=== PATIENT | male | born 1985 | race Caucasian/White ===

== ENCOUNTER 2017-06-22 04:11 | Emergency (ER) | payer OTHER ==
[~2017-06-22] VITALS: Ht 180.3 cm; Wt 70.3 kg
--- NOTE | 2017-06-22 04:14 | PHYS DOC ---
Past Medical History Past Medical History: Seizure Past Surgical History: Other Additional Past Surgical Histo: RIGHT WRIST ORIF, RIGHT COLLARBONE SURG Alcohol Use: Heavy Drug Use: Marijuana Adult General Chief Complaint Chief Complaint: DENTAL PROBLEM HPI HPI Patient is a 32 year old male who presents with in over the last for 5 days. He states she's had issues with his teeth over the last several years and he's had episodes where his head pain the usual resolve themselves and go away. He does not have a dentist. 4 days ago he started having pain in his left upper jaw and is been getting worse. He states he took some Demerol pills earlier today and an amoxicillin tablet. He denies fevers chills nausea or vomiting. He denies any trismus or change in his voice, or trouble swallowing. He denies any troubles breathing. Review of Systems Review of Systems Constitutional: Denies fever or chills [] Eyes: Denies change in visual acuity, redness, or eye pain [] HENT: Denies nasal congestion or sore throat [] Respiratory: Denies cough or shortness of breath [] Cardiovascular: No additional information not addressed in HPI [] GI: Denies abdominal pain, nausea, vomiting, bloody stools or diarrhea [] : Denies dysuria or hematuria [] Musculoskeletal: Denies back pain or joint pain [] Integument: Denies rash or skin lesions [] Neurologic: Denies headache, focal weakness or sensory changes [] Endocrine: Denies polyuria or polydipsia [] Current Medications Current Medications Current Medications Medications (Trade) Dose Ordered Sig/Renee Start Time Stop Time Status Last Admin Dose Admin Acetaminophen/ Hydrocodone Bitart (Lortab 10/325) 1 tab 1X ONCE 06/22/17 05:00 06/22/17 05:01 Penicillin V Potassium (Veetid) 500 mg 1X ONCE 06/22/17 05:00 06/22/17 05:01 Allergies Allergies Allergies Coded Allergies Type Severity Reaction Last Updated Verified No Known Drug Allergies 03/13/15 No Physical Exam Physical Exam Constitutional: Well developed, well nourished, no acute distress, non-toxic appearance. [] HENT: Normocephalic, atraumatic, bilateral external ears normal, oropharynx moist, no oral exudates, nose normal. Multiple dental caries, tender palpation of the apex of the tooth #15, no Hari angina, posterior pharynx clear Eyes: PERRLA, EOMI, conjunctiva normal, no discharge. [] Neck: Normal range of motion, no tenderness, supple, no stridor. [] Cardiovascular:Heart rate regular rhythm, no murmur [] Lungs & Thorax: Bilateral breath sounds clear to auscultation [] Abdomen: Bowel sounds normal, soft, no tenderness, no masses, no pulsatile masses. [] Skin: Warm, dry, no erythema, no rash. [] Back: No tenderness, no CVA tenderness. [] Extremities: No tenderness, no cyanosis, no clubbing, ROM intact, no edema. [] Neurologic: Alert and oriented X 3, normal motor function, normal sensory function, no focal deficits noted. [] Psychologic: Affect normal, judgement normal, mood normal. [] EKG EKG [] Radiology/Procedures Radiology/Procedures [] Impressions: Dental caries Course & Med Decision Making Course & Med Decision Making Pertinent Labs and Imaging studies reviewed. (See chart for details) He doesn't have a fever or other concerning symptoms. We'll treat with Pen-Vee K and Wylie. Return precautions given. He is instructed follow-up with a dentist within the next week. He is agreeable plan of being discharged in stable condition this time. Chelsea Disclaimer Chelsea Disclaimer This electronic medical record was generated, in whole or in part, using a voice recognition dictation system. Departure Departure Impression: Primary Impression: Dental caries Disposition: 01 HOME, SELF-CARE Condition: STABLE Referrals: NO PCP (PCP) Patient Instructions: Dental Abscess Additional Instructions: You likely have a small infection of your teeth in the left upper section of your mouth acuity taken Biaxin next 10 days. You can take Wylie as instructed over the next several days for pain. Please don't take more than instructed. Please don't drive or drink alcohol or taking this medicine as it can impair judgment and make you sleepy. You will need to see a dentist within the next week. Please call and schedule appointment with the dentist. Return ER if you have uncontrolled nausea vomiting, high fevers, trouble swallowing, breathing or you have any other concerns. Scripts Hydrocodone/Apap 5-325 (NORCO 5-325 TABLET) 1 Each Tablet 1-2 TAB PO PRN Q6HRS Y for PAIN, #12 TAB 0 Refills Prov: ELANA MAHONEY MD 06/22/17 Penicillin V Potassium (PENICILLIN V POTASSIUM) 500 Mg Tablet 500 MG PO QID for 7 Days, #28 TAB 0 Refills Prov: ELANA MAHONEY MD 06/22/17 ELANA MAHONEY MD Jun 22, 2017 04:14
[2017-06-22 04:29] VITALS: BP 178/107
[2017-06-22] MEDS ORDERED: PENI500T PO (04:34)
[2017-06-22] MEDS ORDERED: HYDR-971 PO (04:34)
[2017-06-22] MEDS ORDERED: HYDROcodone/APAP 10/325 1 TAB TABLET PO ONE (05:00)
[2017-06-22] MEDS ORDERED: PENICILLIN V K 250 MG TABLET. PO ONE (05:00)
== END 2017-06-22 04:50 | disposition home or self-care (01) ==
LOC: ER 04:11
DX: K02.9 Dental caries, unspecified (principal)
CPT/HCPCS: 99283